=== PATIENT | male | born 1990 | race African-American/Black ===

== ENCOUNTER 2025-03-25 07:13 | Emergency (ER) | payer MEDICARE, MEDICAID, SELFPAY ==
[2025-03-25 07:23] VITALS: PULSE 108; RESP 18; O2SAT 95
[2025-03-25 07:31] VITALS: BP 132/95; PULSE 114; RESP 20; TEMP 38.2; O2SAT 98
[2025-03-25 07:50] VITALS: BMI 30.1
--- NOTE | 2025-03-25 08:05 | XR_ITS ---
Examination: CT brain head without contrast. 2-D sagittal coronal reconstructions Date and time of exam:March 25, 2025 0822 hours INDICATIONS: Seizures today CTDI: vol (mGy):62.7 DLP: (mGycm):1247 Technique: Multiple CT axial sections of the brain have been obtained, 5 mm slice thickness. Contrast has not been administered. 2-D sagittal, coronal reconstructions have been obtained Low dose protocols were performed. One or more of the following dose reduction techniques were used; automated exposure control, adjustment of the mA and/or KV according to patient size, use of iterative reconstruction technique. Findings: Extensive encephalomalacia left middle cerebral artery distribution and both occipital lobes with dystrophic calcification in the right occipital lobe No interval acute hemorrhage Stable left lateral ventricular enlargement Again noted left craniotomy defect IMPRESSION: Stable chronic changes compared with August 03, 2023 No interval acute hemorrhage or mass effect
--- NOTE | 2025-03-25 08:08 | XR_ITS ---
Examination: AP chest single view Technique one AP portable semiupright chest single view Date and time: March 25, 2025 0848 hours INDICATIONS: Coughing beginning today. FINDINGS: Normal heart size No lobar pneumonia The osseous structures are intact IMPRESSION: No active disease
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
[2025-03-25] MEDS: levETIRAcetam INJ 100 MG/ML VIAL 5ML 1000 MG IVP (08:32)
[2025-03-25] MEDS: SODIUM CHLORIDE 0.9% 1000 ML 1,000 ML 999 ML IV (08:32)
[2025-03-25] MEDS: ONDANSETRON INJ 2 MG/ML INJ 2 ML 4 MG IVP (08:32)
[2025-03-25 08:34] LABS: Basophils % (Auto) 0 % (0-2.5); Eosinophils % (Auto) 0 % (0-10); Hematocrit 47.9 % (41.0-53.0); Hemoglobin 16.8 g/dL (13.5-16.0); Immature Granulocytes % (Auto) 1 % (0-0); Immature Granulocytes Auto 0.15 Thou/mm3 (0.00-0.00); Lymphocytes % (Auto) 5 % (10-50); Mean Corpuscular HGB Conc 35.1 g/dl (31.0-37.0); Mean Corpuscular Hemoglobin 33.2 pg (25.0-35.0); Mean Corpuscular Volume 95 fL (80-100); Monocytes # (Auto) 1.3 Thou/mm3 (0.0-0.8); Monocytes % (Auto) 6 % (0-12); Neutrophils # (Auto) 17.5 Thou/mm3 (1.8-7.7); Neutrophils % (Auto) 88 % (37-80); Nucleated Red Blood Cell % 0 /100 WBC (0); Platelet Count 201 Thou/mm3 (140-440); RDW Standard Deviation 40.8 fL (35.1-43.9); Red Blood Count 5.06 Miln/mm3 (4.50-5.90)
[2025-03-25] MEDS: LORazepam 2 MG/ML VIAL 1 MG IVP (08:35)
[2025-03-25 08:44] LABS: Alanine Aminotransferase 39 U/L (10-49); Albumin, Serum 4.6 gm/dL (3.5-5.0); Albumin/Globulin Ratio 1.5 (1.2-2.2); Alkaline Phosphatase 66 U/L (46-116); Anion Gap 14 (7-16); BUN/Creatinine Ratio 15 Ratio (12-20); Bilirubin,Total 0.7 mg/dL (0.3-1.2); Blood Urea Nitrogen 16 mg/dL (9-23); Calcium 9.8 mg/dL (8.3-10.6); Calcium (Corrected) 9.8 mg/dL (8.5-10.1); Carbon Dioxide 23.7 mMol/L (20.0-31.0); Chloride 104 mMol/L (98-107); Creatinine (Component) 1.1 mg/dL (0.6-1.3); Estimated Creatinine Clearance 116.2 mL/min (>60); Glucose 121 mg/dL (74-106); Magnesium 1.5 mg/dL (1.6-2.6); Osmolality,Calculated 285 (275-295); Potassium 3.4 mMol/L (3.4-5.1); Sodium 142 mMol/L (136-145); Total Protein 7.6 gm/dL (5.7-8.2); eGFR > 60 See Note
--- NOTE | 2025-03-25 10:44 | PC.NURSE ---
PATIENT REFUSING VITALS
== END 2025-03-25 13:58 | disposition home or self-care (01) ==
PROVIDERS: Emergency Provider Family Medicine; PCP Internal Medicine
DX: R56.9 Unspecified convulsions (principal); R05.9 Cough, unspecified; D72.829 Elevated white blood cell count, unspecified; W19.XXXA Unspecified fall, initial encounter
CPT/HCPCS: 36415; 70450; 71045; 80053; 83735; 85025; 93005; 96374; 96375; 99284; J1953; J2060; J2405; J7030